=== PATIENT | male | born 1985 | race Caucasian/White ===

== ENCOUNTER 2018-08-14 08:11 | Emergency (ER) | payer BC ==
[2018-08-14 08:33] VITALS: BP 141/81
--- NOTE | 2018-08-14 08:50 | UC ---
Dizzy HPI HPI Summary: dizziness x 1 day woke up this morning to take his dog out, felt lightheaded and dizzy, had a hard time with balance symptoms cont. worse with movements, better with rest, + nausea , no vomiting , no abdominal pain , no ear pain no sinus symptoms, no chest pain , no palpitation - History Of Current Complaint Chief Complaint: UCGeneralIllness Stated Complaint: DIZZY NAUSEA Time Seen by Provider: 08/14/18 08:23 Hx Obtained From: Patient Onset/Duration: Sudden Onset, Lasting Days - 1, Still Present Timing: Constant Severity Initially: Moderate Severity Currently: Moderate Pain Intensity: 0 Character: Room Spinning, Lightheaded, Dizzy Aggravating Factor(s): Exertion, Headache, Position Change, Supine To Erect, Change In Head Position Alleviating Factor(s): Rest Associated Signs And Symptoms: Positive: Nausea. Negative: Vomiting, Diaphoresis, Tinnitus, Chest Pain, SOB, Palpitations, Unsteady Gait, Visual Changes, Decreased Oral Intake, Change In Medication, Change In Diet, OTC Medications - Allergies/Home Medications Allergies/Adverse Reactions: Allergies Allergy/AdvReac Type Severity Reaction Status Date / Time No Known Allergies Allergy Verified 08/14/18 08:33 PMH/Surg Hx/FS Hx/Imm Hx Previously Healthy: Yes - Surgical History Surgical History: None - Family History Known Family History: Negative: Diabetes - Social History Alcohol Use: Rare Substance Use Type: None Smoking Status (MU): Never Smoked Tobacco Review of Systems All Other Systems Reviewed And Are Negative: Yes Constitutional: Positive: Negative Skin: Positive: Negative Eyes: Positive: Negative. Negative: Blurred Vision, Diplopia ENT: Positive: Negative Respiratory: Positive: Negative Neurological: Positive: Negative Is Patient Immunocompromised?: No Physical Exam Triage Information Reviewed: Yes Appearance: Well-Appearing, No Pain Distress, Well-Nourished Vital Signs: Initial Vital Signs Temp 98.1 F 08/14/18 08:28 Pulse 80 08/14/18 08:28 Resp 18 08/14/18 08:28 BP 141/81 08/14/18 08:28 Pulse Ox 100 08/14/18 08:28 Vital Signs Reviewed: Yes Eye Exam: Normal Eyes: Positive: Conjunctiva Clear ENT: Positive: Normal ENT inspection, Hearing grossly normal, Pharynx normal Neck: Positive: Supple, Nontender, No Lymphadenopathy Respiratory Exam: Normal Respiratory: Positive: Chest non-tender, Lungs clear, Normal breath sounds, No respiratory distress Cardiovascular: Positive: RRR, No Murmur, Pulses Normal Abdominal Exam: Normal Abdomen Description: Positive: Nontender, Soft. Negative: CVA Tenderness (R), CVA Tenderness (L), Distended, Guarding Bowel Sounds: Positive: Present Skin Exam: Normal UC Physical Exam Vital Signs On Initial Exam: Initial Vitals Temp Pulse Resp BP Pulse Ox 98.1 F 80 18 141/81 100 08/14/18 08:28 08/14/18 08:28 08/14/18 08:28 08/14/18 08:28 08/14/18 08:28 - Neurological Exam Neurological: Normal, Sensory/Motor Intact, Alert, Oriented to Person Place, Time, CN Intact II-III, Normal Gait, Speech Normal Dizzy Course/Dx - Differential Dx/Diagnosis Provider Diagnosis: Vertigo Discharge - Sign-Out/Discharge Documenting (check all that apply): Patient Departure All imaging exams completed and their final reports reviewed: No Studies - Discharge Plan Condition: Stable Disposition: HOME Prescriptions: Meclizine TAB* [Antivert 12.5 TAB*] 25 mg PO TID PRN #15 tab PRN Reason: Dizziness Patient Education Materials: Vertigo (ED) Referrals: No Primary Care Phys,NOPCP [Primary Care Provider] - If Needed - Billing Disposition and Condition Condition: STABLE Disposition: Home
== END 2018-08-14 08:49 | disposition home or self-care (01) ==
LOC: UCEAST 08:11
DX: R42 Dizziness and giddiness (principal)
CPT/HCPCS: 99212; G0463